=== PATIENT | male | born 1975 | race African-American/Black ===

== ENCOUNTER 2019-12-02 17:07 | Emergency (ER) | payer SELFPAY ==
[~2019-12-02] VITALS: Ht 182.9 cm; Wt 90.7 kg
--- NOTE | 2019-12-02 17:42 | NUR ---
PT WAS EVALUATED BY DR ALEGRIA. PT WAS D/C'd TO HOME. D/C INSTRUCTIONS GIVEN TO THE PT.
[2019-12-02 17:43] VITALS: BP 135/88
== END 2019-12-02 17:43 | disposition home or self-care (01) ==
LOC: ER 17:09
DX: K64.4 Residual hemorrhoidal skin tags (principal); M72.2 Plantar fascial fibromatosis
CPT/HCPCS: A4663; J3490